=== PATIENT | male | born 1995 | race Caucasian/White ===

== ENCOUNTER 2017-05-11 23:37 | Inpatient (IN) | payer OTHER ==
[~2017-05-11] VITALS: Ht 172.7 cm; Wt 134.0 kg
[~2017-05-11 23:37] MED LIST: AUGM875T3 PO
[2017-05-12] VITALS (7 sets, daily range): BP systolic 109–137; BP diastolic 52–78; PULSE 62–82; RESP 15–18; TEMP 97.6–99.2; O2SAT 96–100
[2017-05-12] MEDS ORDERED: NALOXONE HCL 0.4 MG/ML AMP IV PUSH PRN (00:15)
[2017-05-12] MEDS ORDERED: SODIUM CHLORIDE 0.9% FLUSH 10 ML FLUSH IV FLUSH PRN (00:15)
[2017-05-12] MEDS: AMPICILLIN-SULBACTAM INJ 3 GM in SODIUM CHLORIDE 0.9% INJ 100 ML IV SCH ×5 (05:20→19:06)
--- NOTE | 2017-05-12 05:35 | HHI.HP ---
[facility] No Primary Care Physician Admission Diagnosis Diagnoses: Travel History International Travel<30 Days: No Contact w/Intl Traveler <30 Da: No Traveled to Known Affected Are: No History of Present Illness tuesday evening 2 dogs fighting got in [facility], antibnitoic yesterday recheck it was augmentin [place] gave tetaus dogs are up to date with immunizations no fever jsut pain and swelling Review of Systems Except as stated in HPI: all other systems reviewed are Neg Past Family Social History Past Medical History asthma seasonal Past Surgical History double mastectomy jan 2016 Allergies: Coded Allergies: paprika (Verified Allergy, Unknown, 05/12/17) tizanidine (Verified Allergy, Unknown, 05/12/17) Family History breast cancer and pancreatic cancer brca1 in family but he does not carry the gene Social History social smoker, but uses vapor social drinker no drugs, just marjuana once in a while Physical Exam Vital Signs Vital Signs Date Time Temp Pulse Resp B/P (MAP) Pulse Ox O2 Delivery O2 Flow Rate FiO2 05/12/17 05:15 80 18 130/78 (95) 98 Room Air Physical Exam GENERAL: This is a well-nourished, well-developed patient, in no apparent distress. SKIN: No rashes, ecchymoses or lesions. Cool and dry. HEAD: Atraumatic. Normocephalic. No temporal or scalp tenderness. EYES: No scleral icterus. No injection or drainage. ENT: Nose without bleeding, purulent drainage or septal hematoma. Airway patent. NECK: Trachea midline. No JVD Supple, nontender, no meningeal signs. CARDIOVASCULAR: Regular rate and rhythm without murmurs, gallops, or rubs. RESPIRATORY: Clear to auscultation. Breath sounds equal bilaterally. No wheezes , rales, or rhonchi. GASTROINTESTINAL: Abdomen soft, non-tender, nondistended. No guarding. MUSCULOSKELETAL: Extremities without clubbing, cyanosis, or edema. No calf tenderness. left hand with puncture wound, draining small amount of pus and blood, erythema, swelling NEUROLOGICAL: Awake and alert. Motor and sensory grossly within normal limits. Normal speech. Laboratory labs from [place] reviewed Caprini VTE Risk Assessment Caprini Risk Assessment Model Point Value = 1 Point Value = 2 Point Value = 3 Point Value = 5 Age 41-60 Minor surgery BMI > 25 kg/m2 Swollen legs Varicose veins or History of unexplained or recurrent spontaneous Oral contraceptives or hormone replacement Sepsis (< 1 month) Serious lung disease, including pneumonia (< 1 month) Abnormal pulmonary function Acute myocardial infarction Congestive heart failure (< 1 month) History of inflammatory bowel disease Medical patient at bed rest Age 61-74 Arthroscopic surgery Major open surgery (> 45 min) Laparoscopic surgery (> 45 min) Malignancy Confined to bed (> 72 hours) Immobilizing plaster cast Central venous access Age >= 75 History of VTE Family history of VTE Factor V Leiden Prothrombin [id number] Lupus anticoagulant Anticardiolipin antibodies Elevated serum homocysteine Heparin-induced thrombocytopenia Other congenital or acquired thrombophilia Stroke (< 1 month) Elective arthroplasty Hip, pelvis, or leg fracture Acute spinal cord injury (< 1 month) Prophylaxis Regimen Total Risk Factor Score Risk Level Prophylaxis Regimen 0-1 Low Early ambulation 2 Moderate Order ONE of the following: *Sequential Compression Device (SCD) *Heparin 5000 units SQ BID 3-4 Higher Order ONE of the following medications: *Heparin 5000 units SQ TID *Enoxaparin/Lovenox 40 mg SQ daily (WT < 150 kg, CrCl > 30 mL/min) *Enoxaparin/Lovenox 30 mg SQ daily (WT < 150 kg, CrCl > 10-29 mL/min) *Enoxaparin/Lovenox 30 mg SQ BID (WT < 150 kg, CrCl > 30 mL/min) AND/OR *Sequential Compression Device (SCD) 5 or more Highest Order ONE of the following medications: *Heparin 5000 units SQ TID (Preferred with Epidurals) *Enoxaparin/Lovenox 40 mg SQ daily (WT < 150 kg, CrCl > 30 mL/min) *Enoxaparin/Lovenox 30 mg SQ daily (WT < 150 kg, CrCl > 10-29 mL/min) *Enoxaparin/Lovenox 30 mg SQ BID (WT < 150 kg, CrCl > 30 mL/min) AND *Sequential Compression Device (SCD) Assessment and Plan Assessment and Plan left hand dog bite hx of seasonal asthma hx of bilateral mastectomy npo hand sx consult unasyn iv Physician Certification Order for Inpatient Services The services are ordered in accordance with Medicare regulations or non- Medicare payer requirements, as applicable. In the case of services not specified as inpatient-only, they are appropriately provided as inpatient services in accordance with the 2-midnight benchmark. days is the estimated time the patient will need to remain in the hospital, assuming treatment plan goals are met and no additional complications. Richard Soria MD May 12, 2017 05:35
[2017-05-12] MEDS ORDERED: ACETAMINOPHEN 325 MG TAB PO PRN (07:45)
[2017-05-12] MEDS ORDERED: SENNOSIDES 8.6 MG TAB PO PRN (07:45)
[2017-05-12] MEDS ORDERED: LACTULOSE SYRUP 20 GM/30 ML CUP PO PRN (07:45)
[2017-05-12] MEDS: DOCUSATE SODIUM 50 MG/SENNA 8.6 MG TAB PO SCH ×2 (09:00→23:19)
[2017-05-12] MEDS ORDERED: DEXAMETHASONE SOD PHOS 4 MG/ML VIAL IV ONE (12:00)
[2017-05-12] MEDS ORDERED: SODIUM CHLORIDE 0.9% 20 ML VIAL IV ONE (12:00)
[2017-05-12] MEDS ORDERED: ONDANSETRON HCL 4 MG/2 ML VIAL IV ONE (12:00)
[2017-05-12] MEDS ORDERED: LACTATED RINGER'S 1000 ML INJ 1,000 ML IV ONE (12:00)
[2017-05-12] MEDS ORDERED: LIDOCAINE HCL 1% PF 5 ML SYRINGE OTHER ONE (12:00)
[2017-05-12] MEDS ORDERED: ePHEDrine/NS 25 MG/5 ML SYRINGE IV ONE (12:00)
[2017-05-12] MEDS ORDERED: PROPOFOL 200 MG/20 ML AMP IV ONE (12:00)
--- NOTE | 2017-05-12 12:17 | HHI.PR ---
Subjective Remarks Follow up for dog bite to the left hand. The patient reports improvement of the left hand edema and pain after being started on IV antibiotics. Still unable to make a fist with the left hand. Denies fevers/chills. Denies any drainage from the wounds overnight, only minimal drainage after sutures removed in the ED. He has no other medical complaints including no headache, lightheadedness, dizziness, chest pain, palpitations, shortness of breath, or abdominal complaints. Objective Vitals Vital Signs Date Time Temp Pulse Resp B/P (MAP) Pulse Ox O2 Delivery O2 Flow Rate FiO2 05/12/17 09:45 97.8 62 17 112/52 (72) 98 05/12/17 09:35 05/12/17 08:00 72 16 137/76 (96) 98 Room Air 05/12/17 05:15 80 18 130/78 (95) 98 Room Air I/O 05/11/17 05/11/17 05/11/17 05/12/17 05/12/17 05/12/17 07:00 15:00 23:00 07:00 15:00 23:00 Intake Total 100 ml Balance 100 ml Intake IV Total 100 ml Objective Remarks GENERAL: Well-nourished, well-developed pleasant young male patient in [facility]. SKIN: Warm and dry. Left dorsal hand with diffuse edema, mild erythema, puncture wound to the mid dorsal hand and between left 4th and 5th interphalangeal space, no active drainage. HEENT: Normocephalic. Atraumatic.Pupils equal and round. Mucous membranes pink and moist. CARDIOVASCULAR: Regular rate and rhythm. No murmur appreciated. RESPIRATORY: No accessory muscle use. Clear to auscultation. Breath sounds equal bilaterally. GASTROINTESTINAL: Abdomen soft, non-tender, nondistended. Normoactive bowel sounds x4. MUSCULOSKELETAL: No obvious deformities. Extremities without clubbing, cyanosis , or edema. Left hand with limited ROM secondary to edema, unable to make fist. NEUROLOGICAL: Awake and alert. No obvious cranial nerve deficits. Motor grossly within normal limits. Normal speech. PSYCHIATRIC: Appropriate mood and affect; insight and judgment normal. Medications and IVs Current Medications Medications (Trade) Dose Ordered Sig/Sidra Route Start Time Stop Time Status Last Admin (NS Flush) 2 ml UNSCH PRN IV FLUSH 05/12/17 00:15 (NS Flush) 2 ml BID IV FLUSH 05/12/17 09:00 (Narcan Inj) 0.4 mg UNSCH PRN IV PUSH 05/12/17 00:15 Ampicillin Sodium/ Sulbactam Sodium 3 gm/Sodium Chloride 100 ml @ 200 mls/hr Q6H IV 05/12/17 00:00 05/12/17 05:20 (Tylenol) 650 mg Q6H PRN PO 05/12/17 07:45 (Stevens 5-325 Mg) 1 tab Q4H PRN PO 05/12/17 07:45 (Morphine Inj) 2 mg Q4H PRN IV PUSH 05/12/17 07:45 (Adry-Colace) 1 tab BID PO 05/12/17 09:00 (Milk Of Magnesia Liq) 30 ml Q12H PRN PO 05/12/17 07:45 (Senokot) 17.2 mg Q12H PRN PO 05/12/17 07:45 (Lactulose Liq) 30 ml DAILY PRN PO 05/12/17 07:45 A/P Assessment and Plan 22-year-old male with no significant past medical history presents with a dog bite wound to left hand, sent from [place] ER. Dog Bite Cellulitis, Failed Outpatient: injury occurred Tuesday 05/09, via patient 's own dog, up to date on vaccinations. [facility] seen at [facility] in [place], wound sutured and given rx for po Augmentin. Returns with worsening edema/erythema. S/p suture removal in the ED with purulent drainage expelled. -LUE CT reviewed, shows cellulitis on the dorsum of the left hand over the metacarpals with multiple small locules of air present; no drainable abscess; no osteomyelitis -Tetanus vaccine updated -Continue on IV Unasyn -Pain control with Tylenol prn, Stevens prn, IV Morphine prn -Keep NPO for now -Consulted Hand Surgery, patient going to OR for I&D -Follow wound and blood cultures (on previous visit in [place]) DVT Prophylaxis: teds/SCDs; avoid chemoprophylaxis with upcoming surgery Discharge Planning Going to OR today. Discharge when cleared by hand surgery. Zoe Hope PA-C May 12, 2017 12:17 pm
[2017-05-12] MEDS: SODIUM CHLORIDE 0.9% FLUSH 10 ML FLUSH IV FLUSH SCH ×2 (14:13→23:19)
[2017-05-12] MEDS: MORPHINE SULFATE 2 MG/ML INJ IV PUSH PRN ×2 (16:41→23:26)
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
[2017-05-12] MEDS ORDERED: ACETAMINOPHEN 1000 MG/100 ML 100 ML IV ONE (21:09)
[2017-05-12] MEDS ORDERED: MIDAZOLAM HCL 2 MG/2 ML VIAL ONE (21:10)
[2017-05-12] MEDS ORDERED: KETAMINE HCL 500 MG/5 ML VIAL ONE (21:10)
[2017-05-12] MEDS ORDERED: fentaNYL CITRATE 250 MCG/5 ML AMP ONE (21:48)
[2017-05-12] MEDS ORDERED: DO NOT ADM ANY ANTICOAGULANT DRUGS PRN (22:29)
--- NOTE | 2017-05-12 22:30 | PD.OP ---
Operative Report Preoperative Diagnosis: (1) Dog bite of left hand including fingers with infection Postoperative Diagnosis: (1) Dog bite of left hand including fingers with infection Procedure: incision and drainage left hand dorsum and fourth webspace left hand Anesthesia: general Surgeon: Clovis Amado Scientific Recruiter(s): lavonne Operation and Findings: bite wounds 1 ) dorsal aspect of the left hand 2) fourth webspace left hand inflammation with minimal purulence and devitalized tissue Clovis Amado MD May 12, 2017 22:30
[2017-05-13] MEDS: AMPICILLIN-SULBACTAM INJ 3 GM in SODIUM CHLORIDE 0.9% INJ 100 ML IV SCH ×4 (00:38→19:20)
[2017-05-13 04:00] VITALS: PULSE 70; RESP 18; TEMP 98.9; O2SAT 99
[2017-05-13] MEDS: MORPHINE SULFATE 2 MG/ML INJ IV PUSH PRN ×4 (04:32→23:57)
[2017-05-13 09:03] VITALS: BP 105/60; PULSE 78; RESP 16; TEMP 98; O2SAT 95
[2017-05-13] MEDS: DOCUSATE SODIUM 50 MG/SENNA 8.6 MG TAB PO SCH ×2 (09:09→21:50)
[2017-05-13] MEDS: SODIUM CHLORIDE 0.9% FLUSH 10 ML FLUSH IV FLUSH SCH ×2 (09:10→21:50)
[2017-05-13] MEDS: ACETAMINOPHEN/HYDROcodone 325 MG/5 MG TAB PO PRN (09:10)
[2017-05-13 12:15] VITALS: PULSE 82; RESP 15; TEMP 97.3; O2SAT 94
--- NOTE | 2017-05-13 12:15 | MP ---
cc: Clovis Amado MD DATE OF OPERATION: 05/12/2017 PREOPERATIVE DIAGNOSIS: Dog bite with infection, left hand dorsum and fourth webspace. POSTOPERATIVE DIAGNOSIS: Dog bite with infection, left hand dorsum and fourth webspace. PROCEDURE PERFORMED: Incision and drainage of infection, left hand dorsum and fourth webspace, left hand. SURGEON: Clovis Amado MD ANESTHESIA: General. ESTIMATED BLOOD LOSS: 10 mL. TOURNIQUET TIME: 9 minutes. SPECIMENS: Send for culture and sensitivity from the dorsal aspect of the hand and fourth webspace. DISPOSITION: To the PACU stable. INDICATIONS FOR PROCEDURE: The patient is a 22-year-old male admitted with history of dog bite to the left hand, which happened 3 days ago. The patient had suturing of the laceration at the outside facility. He complained of worsening symptoms. On examination, he had bite wounds over the dorsal aspect of the hand, over the mid third metacarpal shaft region and another bite wound with laceration over the fourth webspace. The patient had tenderness over the fourth metacarpophalangeal joint region and range of motion was limited and painful. X-rays were negative except for soft tissue. The patient was consented for incision and drainage of left hand abscess and possible arthrotomy of the ring finger metacarpophalangeal joint. He was explained the risks and benefits of the procedure. PROCEDURE IN DETAIL: The patient was brought to the operating room. Under general anesthesia, the left upper extremity was sterilely prepped and draped. After limb elevation, tourniquet was inflated to 250 mmHg. Incision was marked over the dorsal aspect of the hand, corresponding to the laceration. This was extended both proximally and distally about a cm each. The wound was opened up and intraoperative findings included minimal purulence with devitalized tissue. This was in the subcutaneous location over the extensor tendons. Material was sent for culture and sensitivity. No evidence of involvement of the extensor tendon was noted. Attention was then directed to the fourth webspace. He had an oblique laceration over the fourth webspace. This was extended dorsally over the MP joint region of the ring finger. On further exploration, there was evidence of pocket of minimal purulence over the subcutaneous location over the extensor mechanism of the MP joint of the ring finger and there was also extension across the volar aspect of the ring finger MP joint, on the ulnar side of the ring finger. No evidence of involvement of the MP joint noted intraoperatively. No evidence of involvement of the flexor tendon sheath was noted intraoperatively. Thorough wash of the wound was carried out with normal saline mixed with hydrogen peroxide. This was then followed by normal saline mixed with irrigant. About a liter of solution was used. Tourniquet was deflated at 9 minutes, as the tourniquet appeared to be venous tourniquet. Bleeding points were cauterized with bipolar cautery. He had good distal circulation at the end of the procedure, where packing of the wound was carried out with 1/4 inch iodoform packing material. The incision site was then closed in loosely fashion using 4-0 nylon in a horizontal mattress, interrupted fashion. Bulky hand dressing was applied, which was held in place by soft roll and this was held in place by a bias hand wrap. The patient was recovered and sent to the recovery room in stable condition. Plan will be to continue with IV antibiotics and change the packing tomorrow. Clovis Amado MD SE/NAE , 10:35 PM , 11:39 PM CARLOS
[2017-05-13 12:23] LABS: AUTOMATED NEUTROPHIL # 8.9 TH/MM3 (1.8-7.7); BASOPHIL % 0.1 % (0.0-2.0); HEMATOCRIT 40.7 % (39.0-51.0); HEMOGLOBIN 13.9 GM/DL (13.0-17.0); LYMPHOCYTE # 1.2 TH/MM3 (1.0-4.8); MEAN CELL VOLUME 86.2 FL (80.0-100.0); MEAN CORPUSCULAR HEMOGLOBIN 29.4 PG (27.0-34.0); MEAN CORPUSCULAR HGB CONC 34.1 % (32.0-36.0); MEAN PLATELET VOLUME 10.1 FL (7.0-11.0); MONO % 3.9 % (0.0-8.0); MONOCYTE # 0.4 TH/MM3 (0-0.9); PLATELET COUNT 269 TH/MM3 (150-450); RED BLOOD COUNT 4.72 MIL/MM3 (4.50-5.90); WHITE BLOOD COUNT 10.5 TH/MM3 (4.0-11.0)
[2017-05-13 12:32] LABS: BICARBONATE 26.2 MEQ/L (21.0-32.0); CALCIUM 9.7 MG/DL (8.5-10.1); CREATININE 0.97 MG/DL (0.60-1.30)
[2017-05-13 15:56] VITALS: BP 107/64; PULSE 76; RESP 15; TEMP 98.1; O2SAT 97
--- NOTE | 2017-05-13 19:09 | HHI.PR ---
Subjective Remarks Patient seen this morning. Reports the pain is controlled. Denies any chest pain or shortness of breath. Denies any nausea or vomiting. No bowel movements yet.. Denies any abdominal pain, nausea, vomiting. Objective Vital Signs Date Time Temp Pulse Resp B/P (MAP) Pulse Ox O2 Delivery O2 Flow Rate FiO2 05/13/17 15:56 98.1 76 15 107/64 (78) 97 05/13/17 12:15 97.3 82 15 94 05/13/17 09:03 98.0 78 16 105/60 (75) 95 05/13/17 04:00 98.9 70 18 99 05/12/17 23:12 97.6 76 16 109/57 (74) 98 05/12/17 23:03 81 14 117/59 (78) 99 Nasal Cannula 2 05/12/17 22:45 92 16 100/55 (70) 98 Nasal Cannula 2 05/12/17 22:35 79 16 98/53 (68) 95 Nasal Cannula 2 05/12/17 22:29 98.4 82 16 85/47 (60) 95 Nasal Cannula 2 05/12/17 20:00 99.2 79 15 111/56 (74) 97 I/O 05/12/17 05/12/17 05/12/17 05/13/17 05/13/17 05/13/17 07:00 15:00 23:00 07:00 15:00 23:00 Intake Total 100 ml 1500 ml 1475 ml Output Total 10 ml Balance 100 ml 1490 ml 1475 ml Intake Oral 0 ml 1200 ml IV Total 100 ml 275 ml Other 1500 ml Output Estimated Blood Loss 10 ml # Voids 1 1 Result Diagram: 05/13/17 1128 05/13/17 1128 Objective Remarks GENERAL: patient sitting up in bed. Appears comfortable. SKIN: Warm and dry. HEAD: Normocephalic. EYES: No scleral icterus. No injection or drainage. NECK: Supple, trachea midline. No JVD. CARDIOVASCULAR: Regular rate and rhythm without murmurs, gallops, or rubs. RESPIRATORY: Breath sounds equal bilaterally. No accessory muscle use. GASTROINTESTINAL: Abdomen soft, non-tender, nondistended. MUSCULOSKELETAL: No cyanosis, or edema. left hand elevated. Bandaged BACK: Nontender without obvious deformity. No CVA tenderness. A/P Assessment and Plan 22-year-old male with no significant past medical history presents with a dog bite wound to left hand, sent from [place] ER. //Dog Bite Cellulitis, Failed Outpatient: injury occurred Tuesday 05/09, via patient's own dog, up to date on vaccinations. Initially seen at [facility] in [place], wound sutured and given rx for po Augmentin. Returns with worsening edema/erythema. S/p suture removal in the ED with purulent drainage expelled. -LUE CT reviewed, shows cellulitis on the dorsum of the left hand over the metacarpals with multiple small locules of air present; no drainable abscess; no osteomyelitis -Tetanus vaccine updated -Continue on IV Unasyn -Pain control with Tylenol prn, [place] prn, IV Morphine prn -Keep NPO for now -Consulted Hand Surgery, patient going to OR for I&D -Follow wound and blood cultures (on previous visit in [place]) = Wound cultures negative at this time. Continue pain control. Appreciate an surgery assistance //Hyperglycemia. 150s. Likely secondary to stress. No history of diabetes. Will check A1c. DVT Prophylaxis: teds/SCDs; avoid chemoprophylaxis with upcoming surgery Discharge Planning continues on IV antibiotics for dog bite left handpending wound cultures status post left hand debridement of wound.Hand surgery following. Dustin Green MD May 13, 2017 19:09
--- NOTE | 2017-05-13 19:09 | HHI.PR ---
Subjective Remarks complains of mild pain denies any fever denies any numbness complaint with limb elevation Objective Vital Signs Date Time Temp Pulse Resp B/P (MAP) Pulse Ox O2 Delivery O2 Flow Rate FiO2 05/13/17 15:56 98.1 76 15 107/64 (78) 97 05/13/17 12:15 97.3 82 15 94 05/13/17 09:03 98.0 78 16 105/60 (75) 95 05/13/17 04:00 98.9 70 18 99 05/12/17 23:12 97.6 76 16 109/57 (74) 98 05/12/17 23:03 81 14 117/59 (78) 99 Nasal Cannula 2 05/12/17 22:45 92 16 100/55 (70) 98 Nasal Cannula 2 05/12/17 22:35 79 16 98/53 (68) 95 Nasal Cannula 2 05/12/17 22:29 98.4 82 16 85/47 (60) 95 Nasal Cannula 2 05/12/17 20:00 99.2 79 15 111/56 (74) 97 I/O 05/12/17 05/12/17 05/12/17 05/13/17 05/13/17 05/13/17 07:00 15:00 23:00 07:00 15:00 23:00 Intake Total 100 ml 1500 ml 1475 ml Output Total 10 ml Balance 100 ml 1490 ml 1475 ml Intake Oral 0 ml 1200 ml IV Total 100 ml 275 ml Other 1500 ml Output Estimated Blood Loss 10 ml # Voids 1 1 left hand: dressing and packing in place decreased swelling and erythema noted terminal degrees of flexion and extension of the fingers are painful intact sensation distally. Result Diagram: 05/13/17 1128 05/13/17 1128 Assessment and Plan Assessment and Plan 22 year old male s/p I and D of left hand abscess POD 1 Plan: packing pulled out 1-2 cms dry dressing applied keep the part elevated active and passive range of motion exercises continue with IV antibiotics hand surgery will follow Clovis Amado MD May 13, 2017 19:09
[2017-05-13 19:43] VITALS: BP 111/59; PULSE 74; RESP 16; TEMP 97.9; O2SAT 98
[2017-05-13] MEDS: MAGNESIUM HYDROXIDE SUSP 30 ML CUP PO PRN (21:50)
[2017-05-14] VITALS: BP 115/66; PULSE 64; RESP 17; TEMP 98.6; O2SAT 99
[2017-05-14] MEDS: AMPICILLIN-SULBACTAM INJ 3 GM in SODIUM CHLORIDE 0.9% INJ 100 ML IV SCH ×4 (00:46→18:44)
[2017-05-14 05:00] VITALS: BP 109/58; PULSE 65; RESP 16; TEMP 98.3; O2SAT 98
[2017-05-14 08:30] VITALS: BP 121/61; PULSE 58; RESP 18; TEMP 98.6; O2SAT 98
[2017-05-14] MEDS: SODIUM CHLORIDE 0.9% FLUSH 10 ML FLUSH IV FLUSH SCH (09:54)
[2017-05-14] MEDS: DOCUSATE SODIUM 50 MG/SENNA 8.6 MG TAB PO SCH ×2 (09:54→21:00)
[2017-05-14] MEDS: MAGNESIUM HYDROXIDE SUSP 30 ML CUP PO PRN (11:31)
--- NOTE | 2017-05-14 14:24 | HHI.PR ---
Subjective Remarks Patient underwent incision and drainage yesterday of left hand infection yesterday with hand surgeon. The dog that bit him was his own. His pain is well controlled, he remains afebrile, no nausea no vomiting. He is hoping to go home soon. Objective Vitals Vital Signs Date Time Temp Pulse Resp B/P (MAP) Pulse Ox O2 Delivery O2 Flow Rate FiO2 05/14/17 05:00 98.3 65 16 109/58 (75) 98 05/14/17 00:00 98.6 64 17 115/66 (82) 99 05/13/17 19:43 97.9 74 16 111/59 (76) 98 05/13/17 15:56 98.1 76 15 107/64 (78) 97 I/O 05/13/17 05/13/17 05/13/17 05/14/17 05/14/17 05/14/17 07:00 15:00 23:00 07:00 15:00 23:00 Intake Total 1475 ml 1250 ml 1190 ml Balance 1475 ml 1250 ml 1190 ml Intake Oral 1200 ml 1250 ml 960 ml IV Total 275 ml 230 ml # Voids 1 3 2 # Bowel Movements 0 Result Diagram: 05/13/17 1128 05/13/17 1128 Objective Remarks GENERAL: Well-nourished, well-developed patient. SKIN: Warm and dry. HEAD: Normocephalic. EYES: No scleral icterus. No injection or drainage. NECK: Supple, trachea midline. No JVD or lymphadenopathy. CARDIOVASCULAR: Regular rate and rhythm without murmurs, gallops, or rubs. RESPIRATORY: Breath sounds equal bilaterally. No accessory muscle use. GASTROINTESTINAL: Abdomen soft, non-tender, nondistended. EXTREMITIES: Left hand is under gauze wrap and suspended vertically in a cocoon sling hung from an IV pole NEUROLOGICAL: Awake, alert, and oriented x 3. Non-focal. A/P Problem List: (1) Dog bite of left hand including fingers with infection ICD Code: S61.452A - Open bite of left hand, initial encounter; S61.259A - Open bite of unspecified finger without damage to nail, initial encounter; L08.9 - Local infection of the skin and subcutaneous tissue, unspecified; W54.0XXA - Bitten by dog, initial encounter Assessment and Plan Dog bite cellulitis Dog bite occurred Tuesday 05/09, he failed p.o. Augmentin as outpatient When suture was removed in the ED purulent drainage was produced Hand surgeon performed surgical debridement of hand yesterday No growth on wound cultures so far Continue with Unasyn IV Appreciate hand surgery consult DVT prophylaxis Giorgi Jose MD May 14, 2017 14:24
[2017-05-14] MEDS: ACETAMINOPHEN/HYDROcodone 325 MG/5 MG TAB PO PRN (14:45)
[2017-05-14 16:00] VITALS: BP 136/76; PULSE 58; RESP 18; TEMP 98.7; O2SAT 100
[2017-05-14] MEDS: MORPHINE SULFATE 2 MG/ML INJ IV PUSH PRN (17:05)
--- NOTE | 2017-05-14 18:14 | HHI.PR ---
Subjective Remarks complains of mild pain denies any fever denies any numbness complaint with limb elevation Objective Vital Signs Date Time Temp Pulse Resp B/P (MAP) Pulse Ox O2 Delivery O2 Flow Rate FiO2 05/14/17 05:00 98.3 65 16 109/58 (75) 98 05/14/17 00:00 98.6 64 17 115/66 (82) 99 05/13/17 19:43 97.9 74 16 111/59 (76) 98 I/O 05/13/17 05/13/17 05/13/17 05/14/17 05/14/17 05/14/17 07:00 15:00 23:00 07:00 15:00 23:00 Intake Total 1475 ml 1250 ml 1190 ml Balance 1475 ml 1250 ml 1190 ml Intake Oral 1200 ml 1250 ml 960 ml IV Total 275 ml 230 ml # Voids 1 3 2 # Bowel Movements 0 examination of the left hand: packing in place decreased swelling and erythema able to make a better fist intact sensation distally cultures: no growth to date Result Diagram: 05/13/17 1128 05/13/17 1128 Assessment and Plan Assessment and Plan 22 year old male s/p I and D of left hand abscess POD 2 Plan: packing pulled out dry dressing applied keep the part elevated active and passive range of motion exercises continue with IV antibiotics plan for discharge tomorrow. hand surgery will follow Clovis Amado MD May 14, 2017 18:14
[2017-05-14 20:00] VITALS: BP 127/68; PULSE 60; RESP 16; TEMP 97.9; O2SAT 100
[2017-05-15] VITALS: BP 147/68; PULSE 74; RESP 20; TEMP 97.9; O2SAT 99
[2017-05-15] MEDS: AMPICILLIN-SULBACTAM INJ 3 GM in SODIUM CHLORIDE 0.9% INJ 100 ML IV SCH ×3 (00:13→13:43)
[2017-05-15] MEDS: SODIUM CHLORIDE 0.9% FLUSH 10 ML FLUSH IV FLUSH SCH ×2 (00:14→05:43)
[2017-05-15 04:00] VITALS: BP 123/88; PULSE 58; RESP 20; TEMP 97.9; O2SAT 100
[2017-05-15 09:00] VITALS: BP 99/57; PULSE 56; RESP 16; TEMP 98.7; O2SAT 100
[2017-05-15] MEDS: DOCUSATE SODIUM 50 MG/SENNA 8.6 MG TAB PO SCH (09:00)
[2017-05-15 11:43] LABS: HEMOGLOBIN A1C 5.2 % (4.3-6.0)
--- NOTE | 2017-05-15 12:11 | HHI.PR ---
Subjective Remarks complains of mild pain denies any fever denies any numbness complaint with limb elevation Objective Vital Signs Date Time Temp Pulse Resp B/P (MAP) Pulse Ox O2 Delivery O2 Flow Rate FiO2 05/15/17 04:00 97.9 58 20 123/88 (100) 100 05/15/17 04:00 Room Air 05/15/17 00:00 97.9 74 20 147/68 (94) 99 05/15/17 00:00 Room Air 05/14/17 20:00 97.9 60 16 127/68 (87) 100 05/14/17 16:00 98.7 58 18 136/76 (96) 100 I/O 05/14/17 05/14/17 05/14/17 05/15/17 05/15/17 05/15/17 07:00 15:00 23:00 07:00 15:00 23:00 Intake Total 1190 ml 1200 ml 540 ml Balance 1190 ml 1200 ml 540 ml Intake Oral 960 ml 1200 ml 420 ml IV Total 230 ml 120 ml # Voids 2 4 2 # Bowel Movements 0 1 1 left hand: dressing in place decreased swelling able to make a fist, terminal degrees of extension painful intact sensation distally gram stain and culture: pasteurella Result Diagram: 05/13/17 1128 05/13/17 1128 Assessment and Plan Assessment and Plan 22 year old male s/p I and D of left hand abscess POD 3 Plan: dry dressing applied keep the part elevated active and passive range of motion exercises cleared for discharge from hand surgery on po augmentin follow up in office in one week time dressing changes by patient once in 2-3 days Clovis Amado MD May 15, 2017 12:11
[2017-05-15] MEDS ORDERED: HYDR-3516 PO (14:06)
[2017-05-15] MEDS ORDERED: AUGM875T3 PO (14:06)
--- NOTE | 2017-05-15 14:14 | HHI.DS ---
Discharge Summary Admission Date May 12, 2017 at 05:12 Discharge Date: May 15, 2017 Admitting Diagnosis (1) Dog bite of left hand including fingers with infection ICD Code: S61.452A - Open bite of left hand, initial encounter; S61.259A - Open bite of unspecified finger without damage to nail, initial encounter; L08.9 - Local infection of the skin and subcutaneous tissue, unspecified; W54.0XXA - Bitten by dog, initial encounter Procedures Surgical Debridement of dog bite infection Brief History - From Admission tuesday evening 2 dogs fighting got in [facility] went to [facility] soaked, sutured, antibnitoic yesterday recheck it was augmentin [place] gave tetaus dogs are up to date with immunizations no fever jsut pain and swelling CBC/BMP: 05/13/17 1128 05/13/17 1128 Significant Findings Laboratory Tests Test 05/13/17 11:28 05/13/17 20:36 Neutrophils (%) (Auto) 85.0 % (16.0-70.0) Neutrophils # (Auto) 8.9 TH/MM3 (1.8-7.7) Random Glucose 158 MG/DL (74-106) PE at Discharge GENERAL: Well-nourished, well-developed patient. SKIN: Warm and dry. HEAD: Normocephalic. EYES: No scleral icterus. No injection or drainage. NECK: Supple, trachea midline. No JVD or lymphadenopathy. CARDIOVASCULAR: Regular rate and rhythm without murmurs, gallops, or rubs. RESPIRATORY: Breath sounds equal bilaterally. No accessory muscle use. GASTROINTESTINAL: Abdomen soft, non-tender, nondistended. EXTREMITIES: Left hand is under gauze wrap and suspended vertically in a cocoon sling hung from an IV pole NEUROLOGICAL: Awake, alert, and oriented x 3. Non-focal. Hospital Course 22-year-old female who was admitted for failure of outpatient therapy for a dog bite cellulitis of his left hand. He was previously on Augmentin but had an area of pus that had collected within the interdigital space. Surgery was performed 2 days ago with debridement of necrotic tissue and evacuation of remaining pus. He has remained afebrile since his admission, pain is currently controlled without need of narcotic pain medicine on a regular basis. He has been cleared for discharge by hand surgeon and has instructions to change dressing once daily. He has a follow-up with his hand surgeon this week. Hand surgeon also recommended resuming Augmentin twice daily as outpatient. He was instructed to keep hand elevated if possible and to return to the ER if any worsening occurs. He is currently stable for discharge and will be leaving shortly. Pt Condition on Discharge: Good Discharge Disposition: Discharge Home Discharge Time: <= 30 minutes Discharge Instructions DIET: Follow Instructions for: As Tolerated, No Restrictions Activities you can perform: Weight Bearing as [place] Other Activity Instructions: Keep left hand elevated Giorgi Sheridan MD May 15, 2017 14:14
== END 2017-05-15 15:37 | disposition home or self-care (01) | DRG 605 ==
LOC: NEPC 05-12 05:02 → NEDA 05-12 05:12 → NEDH 05-12 05:30 → H6YA 05-12 09:43
PROVIDERS: ADMIT Family Medicine; ATTEND Family Medicine
PROC: 0J9K3ZX Drainage of Left Hand Subcutaneous Tissue and Fascia, Percutaneous Approach, Diagnostic (ICD-10-PCS; principal; 2017-05-12 21:26)
DX: S61.452A Open bite of left hand, initial encounter (principal); Z68.41 Body mass index [BMI] 40.0-44.9, adult; L03.114 Cellulitis of left upper limb; L02.512 Cutaneous abscess of left hand; S61.255A Open bite of left ring finger without damage to nail, initial encounter; J45.909 Unspecified asthma, uncomplicated; E66.9 Obesity, unspecified; R73.9 Hyperglycemia, unspecified; Z72.0 Tobacco use; W54.0XXA Bitten by dog, initial encounter
CPT/HCPCS: 73201; 80048; 80053; 83036; 85025; 87015; 87040; 87070; 87102; 87116; 87186; 87205; 87206; 90471; 90715; 96365; 96367; J0131; J0295; J1100; J2250; J2270; J2405; J2543; J3010; J3370; J7050; J7120; Q9967